=== PATIENT | male | born 1970 | race Caucasian/White ===

== ENCOUNTER 2021-06-16 06:39 | Day surgery (SDC) | payer BC ==
[2021-06-14 13:54] VITALS: BMI 29.4
[~2021-06-16 06:39] MED LIST: LACTATED RINGERS 1,000 ML IV SCH
[2021-06-16 07:15] VITALS: RESP 16; TEMP 97.8
[2021-06-16] MEDS ORDERED: LIDOCAINE 1% (10MG/ML) FOR IV START INTRADERMA ONE (07:20)
[2021-06-16] MEDS ORDERED: PROPOFOL 10 MG/ML 20 ML VIAL IV ONE (07:40)
--- NOTE | 2021-06-16 07:58 | P.PCN ---
Date of Procedure: 06/16/21 Procedure(s) Performed: BRIEF HISTORY: Patient is a 51-year-old pleasant white male scheduled for an elective colonoscopy as a part of surveillance of long-standing history of ulcerative colitis diagnosed in 2005. He currently remains in clinical remission. He is maintained on mesalamine 4.8 g daily. PROCEDURE PERFORMED: Colonoscopy with random biopsies. PREOPERATIVE DIAGNOSIS: Long-standing history of ulcerative colitis. IV sedation per Anesthesia. PROCEDURE: After informed consent was obtained, the patient, was brought into the endoscopy unit. IV sedation was administered by Anesthesia under continuous monitoring. Digital rectal examination was normal. Initially the Olympus CF-160 flexible video colonoscope was then inserted in the rectum, gradually advanced into the cecum without any difficulty. Careful examination was performed as the scope was gradually being withdrawn. Ileocecal valve and the appendiceal orifice were visualized and appeared normal. Prep was fair.. Mucosa of the cecum, ascending colon, transverse colon, descending colon, sigmoid colon, and rectum appeared normal. Random biopsies were done from cecum to rectum at every 10 cm intervals to rule out dysplasia Retroflexion was performed in the rectum and no lesions were seen. The patient tolerated the procedure well. IMPRESSION: Normal-appearing colon from rectum to cecum with no evidence of active colitis or colorectal neoplasia . RECOMMENDATIONS: Findings of this examination were discussed with the patient as well as his family. He was advised to follow with the biopsy results. He is no evidence of dysplasia he can have a repeat colonoscopy in 2 years..
[2021-06-16 08:18] VITALS: BP 132/88; PULSE 65
== END 2021-06-16 08:46 | disposition home or self-care (01) ==
LOC: ORWHC2ENDO 06:39
PROVIDERS: ATTEND Internal Medicine Gastroenterology
DX: K51.90 Ulcerative colitis, unspecified, without complications (principal); I10 Essential (primary) hypertension; E78.5 Hyperlipidemia, unspecified; F17.210 Nicotine dependence, cigarettes, uncomplicated; Z79.899 Other long term (current) drug therapy
CPT/HCPCS: 45380; J2704; 88305

== ENCOUNTER 2023-10-08 03:25 | Emergency (ER) | payer BC ==
[2023-10-08 03:40] VITALS: BP 160/102; PULSE 95; RESP 20; TEMP 97.8
[2023-10-08] MEDS ORDERED: AMOXIC-POT CLAV 875-125MG 1 EACH TAB PO STA (03:48)
[2023-10-08] MEDS ORDERED: KETOROLAC 15 MG/ML 1 ML VIAL IM STA (03:48)
--- NOTE | 2023-10-08 03:49 | ED ---
ENT HPI - General Chief complaint: Dental/Oral Stated complaint: Facial swelling, tooth pain Time Seen by Provider: 10/08/23 03:30 Source: patient, family, RN notes reviewed, old records reviewed Mode of arrival: ambulatory Limitations: no limitations - History of Present Illness Initial comments: 53-year-old male with several day history of toothache. Patient noted some upper lip swelling today. Pain is dull in nature, constant. Pain is in the right upper incisor. - Related Data Home Medications Medication Instructions Recorded Confirmed Mesalamine [Lialda] 3 tab PO DAILY 11/05/17 06/16/21 amLODIPine BESYLATE/BENAZEPRIL 1 cap PO HS 11/05/17 06/16/21 [amLODIPine BESYLATE/BENAZEPRIL 5-20 mg] Cholecalciferol [Vitamin D3 (25 2,000 unit PO DAILY 06/14/21 06/16/21 Mcg = 1000 Iu)] Pravastatin Sodium [Pravachol] 10 mg PO HS 06/14/21 06/16/21 Previous Rx's Medication Instructions Recorded Amoxic-Pot Clav 875-125Mg 1 tab PO Q12HR 10 Days #20 tab 10/08/23 [Augmentin 875-125] Ibuprofen [Motrin] 600 mg PO Q8HR PRN #24 tab 10/08/23 Allergies Allergy/AdvReac Type Severity Reaction Status Date / Time No Known Allergies Allergy Verified 06/14/21 13:54 Review of Systems ROS Statement: Those systems with pertinent positive or pertinent negative responses have been documented in the HPI. ROS Other: All systems not noted in ROS Statement are negative. Past Medical History Past Medical History: Hyperlipidemia, Hypertension Additional Past Medical History / Comment(s): hx. ulcerative colitis, recent flare up, recent steroids, hx. colon polyps History of Any Multi-Drug Resistant Organisms: None Reported Past Surgical History: Orthopedic Surgery Additional Past Surgical History / Comment(s): ORIF left ankle, cyst removed from arm, bone graft right hip, colonoscopies Past Anesthesia/Blood Transfusion Reactions: No Reported Reaction Past Psychological History: No Psychological Hx Reported Smoking Status: Current every day smoker Past Alcohol Use History: Occasional Past Drug Use History: None Reported - Past Family History Father Family Medical History: Cancer Additional Family Medical History / Comment(s): colon Mother Family Medical History: Cancer General Exam Limitations: no limitations General appearance: alert, in no apparent distress Head exam: Present: atraumatic Eye exam: Present: normal appearance, PERRL ENT exam: Present: other (Tenderness to percussion tooth #7 and 8) Respiratory exam: Present: normal lung sounds bilaterally. Absent: respiratory distress, wheezes Cardiovascular Exam: Present: regular rate, normal rhythm GI/Abdominal exam: Present: soft. Absent: distended, tenderness, guarding Neurological exam: Present: alert, oriented X3, CN II-XII intact. Absent: motor sensory deficit Psychiatric exam: Present: normal affect, normal mood Skin exam: Present: warm, dry, intact. Absent: cyanosis, diaphoretic Course Vital Signs 10/08/23 03:27 Temperature 97.8 F Pulse Rate 95 Respiratory 20 Rate Blood Pressure 160/102 O2 Sat by Pulse 93 L Oximetry Medical Decision Making - Medical Decision Making Was pt. sent in by a medical professional or institution (, PA, TRUCK DRIVER TEAMSTER, urgent care, hospital, or fpc...) When possible be specific @ -No Did you speak to anyone other than the patient for history (EMS, parent, family, police, friend...)? What history was obtained from this source @ -No Did you review nursing and triage notes (agree or disagree)? Why? @ -I reviewed and agree with nursing and triage notes Were old charts reviewed (outside hosp., previous admission, EMS record, old EKG, old radiological studies, urgent care reports/EKG's, fpc records)? Report findings @ -No old charts were reviewed Differential Diagnosis (chest pain, altered mental status, abdominal pain women, abdominal pain men, vaginal bleeding, weakness, fever, dyspnea, syncope, headache, dizziness, GI bleed, back pain, seizure, CVA, palpatations, mental health, musculoskeletal)? @ -[Acute pulpitis, dental caries, dental abscess EKG interpreted by me (3pts min.). @ -As above X-rays interpreted by me (1pt min.). @ -None done CT interpreted by me (1pt min.). @ -None done U/S interpreted by me (1pt. min.). @ -None done What testing was considered but not performed or refused? (CT, X-rays, U/S, labs)? Why? @ -None What meds were considered but not given or refused? Why? @ -None Did you discuss the management of the patient with other professionals (professionals i.e. , PA, TRUCK DRIVER TEAMSTER, lab, RT, psych nurse, social psychologist, deckhand tuna boat, teacher, chief operations officer, upper caser)? Give summary @ -No Was smoking cessation discussed for >3mins.? @ -No Was critical care preformed (if so, how long)? @ -No Were there social determinants of health that impacted care today? How? (Homelessness, low income, unemployed, alcoholism, drug addiction, transportation, low edu. Level, literacy, decrease access to med. care, halfway, rehab)? @ -No Was there de-escalation of care discussed even if they declined (Discuss DNR or withdrawal of care, Hospice)? DNR status @ -No What co-morbidities impacted this encounter? (DM, HTN, Smoking, COPD, CAD, Cancer, CVA, ARF, Chemo, Hep., AIDS, mental health diagnosis, sleep apnea, morbid obesity)? @ -None Was patient admitted / discharged? Hospital course, mention meds given and route, prescriptions, significant lab abnormalities, going to OR and other pertinent info. @ - well-appearing 53-year-old male. Afebrile. No significant facial swelling noted. He does have tenderness over the upper and right side incisor. No drainable abscess. Patient states he does have a dentist and will arrange for evaluation later today. Patient given Augmentin and Toradol in the emergency department. Undiagnosed new problem with uncertain prognosis? @ -No Drug Therapy requiring intensive monitoring for toxicity (Heparin, Nitro, Insulin, Cardizem)? @ -No Were any procedures done? @ -No Diagnosis/symptom? @Toothache Acute, or Chronic, or Acute on Chronic? @2 Uncomplicated (without systemic symptoms) or Complicated (systemic symptoms)? @ -default Side effects of treatment? @ -No Exacerbation, Progression, or Severe Exacerbation? @ -No Poses a threat to life or bodily function? How? (Chest pain, [place], [place], pneumonia, PE, COPD, DKA, ARF, appy, cholecystitis, CVA, Diverticulitis, Homicidal, Suicidal, threat to staff... and all critical care pts) @ -No Disposition Clinical Impression: Toothache Disposition: HOME SELF-CARE Condition: Good Instructions (If sedation given, give patient instructions): Toothache (ED) Prescriptions: Amoxic-Pot Clav 875-125Mg [Augmentin 875-125] 1 tab PO Q12HR 10 Days #20 tab Ibuprofen [Motrin] 600 mg PO Q8HR PRN #24 tab PRN Reason: Pain Is patient prescribed a controlled substance at d/c from ED?: No Referrals: None,Stated [Primary Care Provider] - 1-2 days Time of Disposition: 03:49
== END 2023-10-08 04:00 | disposition home or self-care (01) ==
LOC: EC 03:25
DX: K08.89 Other specified disorders of teeth and supporting structures (principal); I10 Essential (primary) hypertension; E78.5 Hyperlipidemia, unspecified; F17.200 Nicotine dependence, unspecified, uncomplicated; Z79.899 Other long term (current) drug therapy
CPT/HCPCS: 99283 ×2; 96372 ×2; J1885

== ENCOUNTER → 2024-08-14 | Day surgery (SDC) | payer BC ==
[2024-08-12 12:59] VITALS: BMI 29.2
[~2024-08-14] MED LIST changes: -LACTATED RINGERS 1,000 ML IV SCH; +PROPOFOL 10 MG/ML 20 ML VIAL IV ONE
[2024-08-14] MEDS: IV FLUID CONTINUATION 1,000 ML IV ONE (12:24)
[2024-08-14 12:26] VITALS: TEMP 97.4
[2024-08-14] MEDS: LACTATED RINGERS 1,000 ML IV SCH (12:37)
[2024-08-14 12:40] LABS: Glucose,Whole Blood 94 mg/dL (70-110)
--- NOTE | 2024-08-14 13:34 | P.PCN ---
Date of Procedure: 08/14/24 Procedure(s) Performed: BRIEF HISTORY: Patient is a 52-year-old pleasant white male scheduled for an elective colonoscopy as a part of longstanding history of ulcerative colitis that was diagnosed in 2005. Recently had a flareup in his currently on tapering doses of prednisone. PROCEDURE PERFORMED: Colonoscopy with random biopsies. PREOPERATIVE DIAGNOSIS: Screening for colon cancer/longstanding history of ulcerative colitis. IV sedation per Anesthesia. PROCEDURE: After informed consent was obtained, the patient, was brought into the endoscopy unit. IV sedation was administered by Anesthesia under continuous monitoring. Digital rectal examination was normal. Initially the Olympus CF-160 flexible video colonoscope was then inserted in the rectum, gradually advanced into the cecum without any difficulty. Careful examination was performed as the scope was gradually being withdrawn. Ileocecal valve and the appendiceal orifice were visualized and appeared normal. Prep was excellent. Mucosa of the cecum, ascending colon, transverse colon, descending colon, sigmoid colon, appeared normal. In the proximal rectum between 10 to 15 cm from anal there was mild erythema and friability noted. Biopsies were done from cecum to rectum at every 10 cm intervals. Retroflexion was performed in the rectum and no lesions were seen. The patient tolerated the procedure well. IMPRESSION: Mild active colitis with mucosal erythema and friability involving the proximal rectum between 10 to 15 cm from the anal verge s/p biopsy Rest of the colon appeared normal RECOMMENDATIONS: Findings of this examination were discussed with the patient as well as his family. He was advised to follow-up with the biopsy results. He will continue with Lialda 4 tablets a day. Taper prednisone by 5 mg every 2 weeks. Follow-up in office in 3 months.. Repeat colonoscopy in 2 to 3 years based on the biopsy result
[2024-08-14 13:36] VITALS: BP 129/71; PULSE 73; RESP 16
== END ==
LOC: ORWHC2ENDO 11:52
PROVIDERS: ATTEND Internal Medicine Gastroenterology
DX: Z12.11 Encounter for screening for malignant neoplasm of colon (principal); K51.20 Ulcerative (chronic) proctitis without complications; F17.200 Nicotine dependence, unspecified, uncomplicated; Z79.52 Long term (current) use of systemic steroids; Z79.899 Other long term (current) drug therapy
CPT/HCPCS: 88305; 45380; J2704